=== PATIENT | female | born 1965 ===

== ENCOUNTER → 2017-06-01 17:22 | Outpatient (CLI) | payer OTHER ==
[~2017-06-01 17:22] MED LIST: ATENOLOL25 MG PO; KETO10TA2 PO; LIPITOR20 MG; ORPH100T PO; SYNTHROID100 MCG PO; VOLTAREM 50 MG PO
== END | disposition home or self-care (01) ==
LOC: LAB 17:22
DX: J11.1 Influenza due to unidentified influenza virus with other respiratory manifestations (principal)